=== PATIENT | male | born 1985 | race Caucasian/White ===

== ENCOUNTER 2020-05-31 12:35 | Inpatient (IN) | payer BC, SELFPAY ==
--- NOTE | ~2020-05-31 | CT_ITS ---
EXAMINATION: CT abdomen pelvis w con EXAM DATE: 05/31/2020 13:44 INDICATION: Abdominal pain and leukocytosis. TECHNIQUE: Spiral CT of the abdomen and pelvis was performed following intravenous injection of 100 m L Omnipaque 350. Axial, coronal and sagittal images were reviewed. The dose-length product (DLP) fo r this examination was 1013.96 mGy-cm. The exposure was tailored according to patient size (auto mA exposure control), and iterative reconstruction (ASIR) was used as additional dose reduction techniqu e. There is no prior study for comparison. FINDINGS: Mild to moderate scattered colonic diverticulosis. There is moderate amount of descending/s igmoid colonic wall edema, adjacent inflammation most likely acute diverticulitis, with a small regio n of extraluminal gas, microperforation. No abscess or gross free intraperitoneal air. The liver, spleen, adrenal glands and pancreas are unremarkable. Gallbladder is unremarkable. No bi liary obstruction. Portal and splenic veins are patent. Kidneys enhance symmetrically. There is no hydronephrosis. The prostate is unremarkable. The bladder is unremarkable. There is no retroperi toneal or pelvic lymphadenopathy. The appendix is normal. The stomach and small bowel are unremarkable. There is colonic fluid, corre late for diarrhea. The heart is normal in size. There are no pericardial or pleural effusions. The lung bases are unremarkable. There are no osteoblastic or osteolytic lesions identified. IMPRESSION: Findings consistent with acute descending/sigmoid colonic diverticulitis, microperforatio n. Reviewed, dictated and finalized at location B. [facility] PROFESSOR IMPRESSION: Findings consistent with acute descending/sigmoid colonic diverticu litis, microperforation.
[2020-05-31 12:41] VITALS: BP 146/98; PULSE 105; RESP 18; TEMP 37; O2SAT 97
[2020-05-31 12:53] LABS: Basophils Absolute Auto 0.1 K/mm3 (0.0-0.1); Basophils Percent Auto 0.3 % (0.2-1.2); Eosinophils Absolute Auto 0.1 K/mm3 (0-0.3); Eosinophils Percent Auto 0.8 % (0-4.4); Hematocrit 49.4 % (42.0-52.0); Hemoglobin 17.3 g/dL (14.0-18.0); Immature Granulocyte Absolute 0.08 K/mm3 (0.00-0.031); Immature Granulocyte Percent A 0.5 % (0-0.5); Lymphocytes Absolute Auto 2.38 K/mm3 (0.9-3.2); Lymphocytes Percent Auto 13.6 % (18.3-44.2); Mean Corpuscular Hemoglobin 31.7 pg (26-34); Mean Corpuscular Volume 90.6 fl (80-100); Mean Platelet Volume 9.4 fl (7.4-10.4); Monocytes Percent Auto 11.3 % (2.6-8.5); Neutrophils Absolute Auto 12.9 K/mm3 (1.3-6.7); Neutrophils Percent Auto 73.5 % (45.5-73.1); Platelet Count Result 219 k/mm3 (150-375); Red Blood Count 5.45 M/mm3 (4.6-6.20); Red Cell Distribution Width 12.3 % (11.5-14.5); White Blood Count 17.6 K/mm3 (4.5-10.0)
[2020-05-31] MEDS: SODIUM CHLORIDE 0.9% IV 1,000 ML 999 ML IV CONT (12:58)
[2020-05-31 13:07] LABS: Alanine Aminotransferase 41 U/L (4-50); Albumin Level 4.8 g/dL (3.5-5.1); Alkaline Phosphatase 78 U/L (38-126); Anion Gap 10 mmol/L (8-16); Aspartate Amino Transferase 25 U/L (17-59); Bilirubin,Total 1.3 mg/dL (0.2-1.3); Blood Urea Nitrogen 8 mg/dL (9-20); Calcium 9.4 mg/dL (8.4-10.2); Carbon Dioxide 30 mmol/L (22-30); Chloride 98 mmol/L (98-107); Estimated CRCL calculation 125 ml/min; Estimated Glomerular Filt Rate > 60; Glucose 110 mg/dL (75-110); Lipase 30 U/L (23-300); Potassium 3.8 mmol/L (3.4-5.0); Sodium 138 mmol/L (137-145)
[2020-05-31 13:12] LABS: Add Urine Microscopic? YES; Appearance Urine Clear (Clear); Bacteria Urine Trace /hpf; Bilirubin Urine Negative (Negative); Blood Urine 1+ (Negative); Color Urine Amber (Yellow); Glucose Urine UA Negative (Negative); Ketones Urine Negative (Negative); Leukocyte Esterase Ur Negative LEU/UL (Negative); Mucus Urine Few /lpf; Nitrate Urine Negative (Negative); Protein Urine 2+ mg/dL (Negative); Transitional Epi Cells Urine Rare /hpf (None Seen); WBC Urine 0-3 /hpf
[2020-05-31 13:14] LABS: Specific Grav Ur 1.036 (1.001-1.035)
[2020-05-31 14:07] VITALS: BP 118/81; PULSE 88; RESP 12; O2SAT 97
--- NOTE | 2020-05-31 14:32 | ED.ABDPAIN ---
HPI - Abdominal Pain General Chief Complaint: Abdominal Pain <Kurt Valdez PA-C - Last Filed: 05/31/20 14:43> Stated Complaint: Lower Abd Pain <Kurt Valdez PA-C - Last Filed: 05/31/20 14:43> Time Seen by Provider: 05/31/20 12:37 <Kurt Valdez PA-C - Last Filed: 05/31/20 14:43> Source: patient <MEGHA Dodge Last Filed: 05/31/20 14:43> Mode of arrival: ambulatory <MEGHA Dodge Last Filed: 05/31/20 14:43> Limitations: no limitations <Kurt Valdez PA-C - Last Filed: 05/31/20 14:43> History of Present Illness HPI narrative: Patient presents from [facility] urgent [facility] with chief complaint of lower central and lower left-sided abdominal pain that began 2 days ago. Patient states originally he thought that he was constipated so he took MiraLAX and Dulcolax which has allowed him to pass very small amounts of loose stool but the pain, feelings of distention and bloatedness continued so he went to the urgent care for evaluation. Patient states he is not eating or drinking anything out of the ordinary recently. He denies anybody else being sick at home. Patient denied vomiting, fever, chills. Patient denies ever having any abdominal issues in the past. Patient denies any chronic medical issues he states that he smokes, occasionally drinks alcohol and smokes marijuana but denies any other recreational drug use. <Kurt Valdez PA-C - Last Filed: 05/31/20 14:43> Related Data Home Medications: Home Medications Medication Instructions Recorded Confirmed No Home Medications 05/31/20 05/31/20 <MEGHA Dodge Last Filed: 05/31/20 14:43> Allergies/Adverse Reactions: Allergies Allergy/AdvReac Type Severity Reaction Status Date / Time No Known Allergies Allergy Verified 05/31/20 16:27 <MEGHA Dodge Last Filed: 05/31/20 14:43> Review of Systems Review of Systems: Narrative: CONSTITUTIONAL: Denies fever, chills, or sweats. EYES: Denies visual changes, redness, or discharge. ENT: Denies rhinorrhea, congestion, sore throat, or otalgia. CARDIOVASCULAR: Denies chest pain, palpitations, or edema. RESPIRATORY: Denies cough or dyspnea. GASTROINTESTINAL: Reports abdominal pain in alternation of constipation and loose stool denies nausea, vomiting, or diarrhea. GENITOURINARY: Denies dysuria or hematuria. SKIN: Denies rash or itching. MUSCULOSKELETAL: Denies back pain, joint pain, or myalgia. NEUROLOGIC: Denies headache, numbness, dizziness, or weakness. PSYCHIATRIC: Denies anxiety or depression. <Kurt Valdez PA-C - Last Filed: 05/31/20 14:43> [facility] Family History Family History: Family History (Updated 05/31/20 @ 16:35 by Darline Tyler RN) Sibling Diabetes mellitus Mother Chronic obstructive pulmonary disease Asthma Diverticulitis <Kurt Valdez PA-C - Last Filed: 05/31/20 14:43> Social History Social History: Social History Smoking status: Current every day smoker Second hand tobacco smoke exposure: No Alcohol intake: never Substance use: current Substance use type: marijuana Gender identity (if verbalized by the patient): Male Spiritual care concerns: No <Kurt Valdez PA-C - Last Filed: 05/31/20 14:43> Exam Narrative: Exam Narrative: GENERAL: Well-appearing, well-nourished. Appears slightly uncomfortable. HEAD: Normocephalic, atraumatic. EYES: PERRLA and EOMI. NECK: ROM intact. CHEST: Clear to auscultation. No respiratory distress. No wheezes rales or rhonchi HEART: Regular rate and rhythm. No murmur heard. Normal peripheral pulses. ABDOMEN: abdomen firmer in lower quadrant, tender to central region and LLQ. Bowel sounds present. No umbilicus tenderness or RLQ tenderness. EXTREMITIES: Normal range of motion. No edema. SKIN: Warm, dry, no rash. NEURO: No focal deficits. Alert and oriented x3. PSYCH: Normal mood and affect. <
--- NOTE | 2020-05-31 14:43 | PM.IMHP ---
H&P: HPI History of Present Illness Date/Time: 05/31/20 14:43 Chief Complaint: abdominal pain Narrative: Raghavendra Win is a 34 year old male presenting to the ED c/o worsening lower abd pain over last few days. Pt reports pain has become more severe and constant. Pt reports poor appetite and some loose stools. Pt also has not felt well and reports subjective f/c. Pt reports similar episodes in the past but much less severe. Review of Systems Constitutional: Constitutional: Reports chills, Reports fatigue, Reports fever(s), Denies headache(s), Reports lethargy, Reports malaise, Reports poor appetite, Reports weakness, Denies weight gain and Denies weight loss Eyes: Eyes: Reports no additional eye complaints ENT: Reports system reviewed and no additional complaints, except as documented and Reports Normal hearing present Cardiovascular: Cardiovascular: Reports no additional cardiovascular complaints Respiratory: Respiratory: Reports no additional respiratory complaints Gastrointestinal: Gastrointestinal: Reports abdominal pain, Denies belching, Reports change in bowel habits, Reports change in stool character, Denies constipation, Reports GI cramping, Reports loose stools, Reports nausea and Denies vomiting Genitourinary: Genitourinary: Reports no additional male genitourinary complaints Musculoskeletal: Musculoskeletal: Reports no additional musculoskeletal complaints Integumentary/Breasts: Skin/Breast: Reports system reviewed and no additional complaints, except as docu Psychiatric: Psychiatric: Reports no additional psychiatric complaints Endocrine: Endocrine: Reports no additional endocrine complaints Hematologic/Lymphatic: Hematologic/Lymphatic: Reports no additional hematologic/lymphatic complaints Allergic/Immunologic: Allergic/Immunologic: Reports no additional allergic/immunologic complaints [facility] Social History Social History Smoking status: Current every day smoker Second hand tobacco smoke exposure: No Alcohol intake: never Comments pt denies any PMH, denies FH of any colorectal cancers, IBD Meds Home Medications and Allergies Allergies Allergy/AdvReac Type Severity Reaction Status Date / Time No Known Allergies Allergy Unverified 01/22/14 21:49 Vital Signs Vital Signs - 24 hr 05/31/20 12:41 Temperature 37.0 C Pulse Rate 105 H Respiratory Rate 18 Blood Pressure 146/98 H Pulse Oximetry 97 Exam Const: General: cooperative, comfortable, alert, awake, Physically active and acute distress mild Nutritional Appearance: obese Orientation/consciousness: patient oriented x3 Limitations: no limitations HENMT: Head: normal to inspection, normocephalic and atraumatic Ears: hearing grossly normal bilaterally General nose exam: Normal external nose present Mouth: Yes moist mucous membranes abnormal Eyes: General: appearance normal, both eyes and all related structures Pupils: Equal, round and reactive pupils present EOM: EOMs intact bilaterally Neck: Neck: normal visual inspection, full ROM, no lymphadenopathy and supple Chest: Chest palpation & inspection: normal inspection of the chest Resp: Effort & Inspection: normal respiratory effort Auscultation: clear to auscultation bilaterally Cardio: Rate: regular rate Rhythm: regular rhythm GI: Inspection: normal to inspection, distended and obesity GI Palp: Yes abdominal tenderness, Yes Soft to palpation, No Firmness to palpation present (GI), Yes Tenderness to palpation present (GI), Yes Guarding due to palpation present (GI) and No Hernia present Other: soft, sl dist, mod TTP LLQ, vol guard Skin: General skin exam: normal color and no rashes or lesions noted Neuro: General: patient oriented x3 and CN's II-XI intact bilaterally Extrem: General: normal to inspection and full ROM Psych: Appearance: grossly normal Mental Status: mental status grossly normal H&P: Results
[2020-05-31] MEDS: MORPHINE SULFATE (*CRX) 4 MG/ML INJ 2 MG IV PUSH (14:59)
[2020-05-31 15:01] VITALS: BP 134/70; PULSE 99; RESP 12; O2SAT 99
[2020-05-31] MEDS: metroNIDAZOLE 500 MG/ISO 100ML 500 MG/100 ML BAG 100 MG IVPB ×2 (15:06→21:36)
[2020-05-31 15:57] VITALS: BP 132/64; PULSE 86; RESP 12; O2SAT 99
--- NOTE | 2020-05-31 16:14 | ADMGEN ---
This patient, Raghavendra Win, was admitted to Medical Room 346-01. Patient/family oriented to hospital policies and general routines including ID bracelet, bed and alarms, visiting hours, pain management, procedures, bathroom and other care routines, personal items, smoking policy, room service/diet, and visiting hours. Information on how to activate the Rapid Response Team has been discussed. Patient/Family are encouraged to report perceived risks to care and to ask questions if they do not understand what they are told or what they should do.
[2020-05-31 16:22] VITALS: BP 147/88; PULSE 94; RESP 16; TEMP 36.3; O2SAT 98
[2020-05-31 16:23] VITALS: BMI 33.5
[2020-05-31] MEDS: SODIUM CHLORIDE 0.9% IV 1,000 ML 125 ML IV CONT (16:25)
[2020-05-31 16:28] VITALS: BMI 33.5
[2020-05-31 19:37] VITALS: BP 156/81; PULSE 90; RESP 14; TEMP 36.7; O2SAT 97
[2020-05-31] MEDS: HYDROcodone/acetaminophen (*CRX) 5-325 MG TABLET 1 TAB PO (19:54)
[2020-06-01] MEDS: SODIUM CHLORIDE 0.9% IV 1,000 ML 125 ML IV CONT ×2 (02:03→12:28)
[2020-06-01] MEDS: metroNIDAZOLE 500 MG/ISO 100ML 500 MG/100 ML BAG 100 MG IVPB ×2 (05:36→13:00)
[2020-06-01 05:58] VITALS: BP 140/74; PULSE 84; RESP 12; TEMP 36.3; O2SAT 97
[2020-06-01 08:46] LABS: Hemoglobin 14.5 g/dL (14.0-18.0); Mean Corpuscular HGB Conc 35.4 g/dl (32-36); Mean Corpuscular Hemoglobin 31.8 pg (26-34); Mean Corpuscular Volume 89.9 fl (80-100); Mean Platelet Volume 10.2 fl (7.4-10.4); Platelet Count Result 192 k/mm3 (150-375); Red Blood Count 4.56 M/mm3 (4.6-6.20); Red Cell Distribution Width 12.2 % (11.5-14.5); White Blood Count 10.4 K/mm3 (4.5-10.0)
[2020-06-01 08:57] LABS: Anion Gap 4 mmol/L (8-16); Blood Urea Nitrogen 7 mg/dL (9-20); Calcium 8.3 mg/dL (8.4-10.2); Carbon Dioxide 30 mmol/L (22-30); Chloride 104 mmol/L (98-107); Estimated CRCL calculation 145 ml/min; Estimated Glomerular Filt Rate > 60; Glucose 102 mg/dL (75-110); Sodium 138 mmol/L (137-145)
--- NOTE | 2020-06-01 12:23 | PM.DS ---
DS: Admitting Diagnosis Admitting Diagnosis Admitting Diagnosis: Acute diverticulitis with microperforation DS: Discharge Diagnosis Discharge Diagnosis (1) Diverticulitis of colon with perforation: Qualifiers: Diverticulitis bleeding: unspecified bleeding status Qualified Code(s): K57.20 - Diverticulitis of large intestine with perforation and abscess without bleeding Code(s): K57.20 - Diverticulitis of large intestine with perforation and abscess without bleeding Status: Acute (2) Obesity (BMI 30-39.9): Code(s): E66.9 - Obesity, unspecified Status: Acute DS: Summary Hospital Course Reason for hospitalization: Raghavendra Win is a 34 year old male who presented to the ED c/o worsening lower abd pain over past few days. He had associated loose stools and poor appetite. CT scan of the abdomen and pelvis showed evidence of acute diverticulitis of the sigmoid and descending colon with microperforation, no abscess. Labs showed leukocytosis with WBC 17,600. The patient was admitted to our service in this setting. Hospital Course: He was started on broad-spectrum IV antibiotics and IV fluids with bowel rest. He was eventually placed on a clear liquid diet and has been doing well with this. Labs were repeated this morning and showed WBC down to 10,000. He has been afebrile. The patient is seen this morning with significant clinical improvement. He denies any abdominal pain, nausea, or bloating. He states he is still slightly tender in the LLQ of the abdomen but much improved since admission. He reports flatus and had 1 BM since admission that was normal for him. No other complaints at this time. The patient is being advanced to a soft low fiber diet today. If he is able to tolerate this, then he will be discharged later this afternoon on oral antibiotics. All discharge instructions were discussed with the patient in detail and questions answered. Dr. Ballesteros will see the patient in follow-up in the office. We recommended establishing care with a PCP and also referral to GI for colonoscopy after resolution of the diverticulitis (about 4-6 weeks). Status at Discharge Functional status at discharge: independent ambulation Overall status at discharge: patient is progressing back to baseline Time Spent with Patient Time attestation: Total time spent providing and/or coordinating discharge services: Time spent: Less than 30 minutes Exam Const: General: comfortable, alert and awake Orientation/consciousness: patient oriented x3 Resp: Effort & Inspection: normal respiratory effort Auscultation: clear to auscultation bilaterally Cardio: Rate: regular rate Rhythm: regular rhythm GI: Inspection: non-distended and obesity GI Palp: Yes Soft to palpation, Yes Tenderness to palpation present (GI) (mild improved tenderness of LLQ/suprapubic area), No Guarding due to palpation present (GI) and No Rebound tenderness present Percussion: Yes normal to percussion Auscultation: normal bowel sounds Other: soft, sl dist, mod TTP LLQ, vol guard Skin: General skin exam: normal color Neuro: General: moves all extremities and no focal motor deficits Extrem: General: normal to inspection and full ROM Psych: Appearance: grossly normal Mental Status: mental status grossly normal Insight: Good insight present (Psych) Judgement: Good judgement present (Psych) DS: Data Data Completed and Pending Completed studies during hospitalization: ITS Impressions Abdomen/Pelvis CT 05/31/20 13:50 IMPRESSION: Findings consistent with acute descending/sigmoid colonic diverticulitis, microperforation. Labs on day of discharge: Labs from last 24 hours 06/01/20 06/01/20 05/31/20 08:39 08:39 12:59 WBC 10.4 H RBC 4.56 L Hgb 14.5 Hct 41.0 L MCV 89.9 MCH 31.8 MCHC 35.4 RDW 12.2 Plt Count 192 MPV 10.2 Immature Gran % (Auto) Neut % (Auto) Lymph % (Auto) Day % (Auto) Eos % (Auto) B
[2020-06-01 14:00] VITALS: BP 143/89; PULSE 97; RESP 18; TEMP 36.6; O2SAT 99
--- NOTE | 2020-06-01 14:11 | PCDIET ---
Physician consult for low fiber vs high fiber. See nutritional teaching intervention. thank you for the consult.
== END 2020-06-01 14:56 | disposition home or self-care (01) | DRG 244 ==
LOC: ANHED 14:43 → ANH3MED 15:25
PROVIDERS: Physician Assistant; Admitting Provider Surgery; Emergency Provider Emergency Medicine; Visit Provider Nurse Practitioner Family
DX: K57.20 Diverticulitis of large intestine with perforation and abscess without bleeding (principal); E66.9 Obesity, unspecified; Z68.33 Body mass index [BMI] 33.0-33.9, adult; F17.210 Nicotine dependence, cigarettes, uncomplicated
CPT/HCPCS: 36415; 74177; 80048; 80053; 81001; 83690; 85025; 85027; 96361; 96374; 99285; A9270; J0131; J2270; J2543; J7030; Q9967